=== PATIENT | female | born 1970 | race Caucasian/White ===

== ENCOUNTER → 2020-04-22 | Outpatient (CLI) | payer BC ==
--- NOTE | 2020-04-22 18:53 | XR ---
EXAMINATION TYPE: XR chest 2V DATE OF EXAM: 04/22/2020 COMPARISON: NONE TECHNIQUE: PA and lateral views submitted. HISTORY: Positive TB test. FINDINGS: The lungs are clear and there is no pneumothorax, pleural effusion, or focal pneumonia. No pleural or parenchymal calcifications. Heart size normal. No overt failure. Mild hyperinflation. Correlate fo r COPD. Hypertrophic and degenerative change of the spine. IMPRESSION: 1. No acute process.
== END | disposition home or self-care (01) ==
LOC: RAD 16:47
PROVIDERS: ATTEND Internal Medicine
DX: R76.11 Nonspecific reaction to tuberculin skin test without active tuberculosis (principal)
CPT/HCPCS: 71046

== ENCOUNTER → 2020-11-18 | Outpatient (CLI) | payer BC ==
--- NOTE | 2020-11-18 10:06 | XR ---
EXAMINATION TYPE: XR chest 2V DATE OF EXAM: 11/18/2020 COMPARISON: 04/22/2020 INDICATION: Covid TECHNIQUE: Frontal and lateral views of the chest are obtained. FINDINGS: The heart size is normal. The pulmonary vasculature is normal. The lungs are clear. Mild scoliosis of the midthoracic spine. IMPRESSION: 1. No suspicious infiltrates identified at this time. Follow-up can be performed as clinically indic ated
== END | disposition home or self-care (01) ==
LOC: RADXRMAIN 09:22
PROVIDERS: ATTEND Internal Medicine
DX: U07.1 COVID-19 (principal)
CPT/HCPCS: 71046